=== PATIENT | female | born 1980 ===

== ENCOUNTER 2020-06-11 07:51 | Day surgery (SDC) | payer OTHER ==
[~2020-06-11 07:51] MED LIST: FOLIC ACID1 MG PO; KEFLEX500 MG PO; LOVENOX40 MG/0.4 SQ; PRENATAL 19 TA1 EACH PO; PROMETRIUM200 MG PO; SYNTHROID75 MCG PO; [UNRECOGNIZED DRUG - OTHER] PO; [UNRECOGNIZED DRUG - OTHER] PO
== END 2020-06-11 17:40 | disposition home or self-care (01) ==
LOC: CIR.AMB 07:51
PROVIDERS: ATTEND Obstetrics & Gynecology
DX: O34.32 Maternal care for cervical incompetence, second trimester (principal); Z20.828 Contact with and (suspected) exposure to other viral communicable diseases

== ENCOUNTER 2020-12-09 12:00 | Inpatient (IN) | payer OTHER ==
[~2020-12-09] VITALS: Ht 160 cm; Wt 84.8 kg
[2020-12-17] MEDS ORDERED: SYNTHROID50 MCG (14:06)
== END 2020-12-19 13:53 | disposition home or self-care (01) | DRG 807 ==
LOC: SURH 12-16 12:00 → LDR 12-17 07:23 → SURG-SUITE 12-17 07:23
PROVIDERS: ADMIT Obstetrics & Gynecology; ATTEND Obstetrics & Gynecology
PROC: 10E0XZZ Delivery of Products of Conception, External Approach (ICD-10-PCS; principal; 2020-12-17)
PROC: 3E033VJ Introduction of Other Hormone into Peripheral Vein, Percutaneous Approach (ICD-10-PCS; 2020-12-17)
PROC: 4A1HXFZ Monitoring of Products of Conception, Cardiac Rhythm, External Approach (ICD-10-PCS; 2020-12-17)
DX: O70.0 First degree perineal laceration during delivery (principal); Z37.0 Single live birth; Z3A.39 39 weeks gestation of pregnancy; Z20.822 Contact with and (suspected) exposure to COVID-19

== ENCOUNTER 2020-12-09 16:18 | Outpatient (CLI) | payer OTHER | END 2020-12-09 17:20 | disposition home or self-care (01) | LOC: NST 16:18 | PROVIDERS: ATTEND Obstetrics & Gynecology | DX: Z34.83 Encounter for supervision of other normal pregnancy, third trimester (principal) ==